=== PATIENT | female | born 1990 | race American Indian/Alaskan Native ===

== ENCOUNTER 2018-06-10 11:19 | Emergency (ER) | payer SELFPAY ==
[2018-06-10 13:07] LABS: HCG Qualitative,Urine Negative (Negative)
--- NOTE | 2018-06-10 17:32 | Emergency Department Report ---
ED ENT HPI - General Chief complaint: Dental/Oral Stated complaint: SWOLLEN FACE Time Seen by Provider: 06/10/18 16:47 Source: patient Mode of arrival: Ambulatory Limitations: No Limitations - History of Present Illness Initial comments: This is a 28-year-old -[place] female who presents with cavity to left upper and facial swelling on left side. Patient states she woke up this morning and the left side of face swollen. Patient states she is unsure of when she broke tooth on left upper side. Patient states initially there were some mild swelling today is unbearable. He denies sore throat, difficulty swallowing, fever, chest pain. MD complaint: tooth pain -: unknown Location: tooth # (#14) 1 - Partial tooth #14 and dental caries Severity: moderate Severity scale (0 -10): 10 Quality: aching Consistency: constant Improves with: none Worsens with: eating Context- Dental: history of dental caries, trauma, poor dental care Associated Symptoms: gum swelling, toothache - Related Data Previous Rx's Medication Instructions Recorded Last Taken Type Clindamycin [Clindamycin CAP] 300 mg PO Q8H #21 cap 06/10/18 Unknown Rx Naproxen 500 mg PO BID #14 tablet 06/10/18 Unknown Rx traMADol [Ultram 50 MG tab] 50 mg PO Q6HR PRN #12 tablet 06/10/18 Unknown Rx Allergies Allergy/AdvReac Type Severity Reaction Status Date / Time No Known Allergies Allergy Unverified 06/10/18 11:31 ED Dental HPI - General Chief complaint: Dental/Oral Stated complaint: SWOLLEN FACE Time Seen by Provider: 06/10/18 16:47 Source: patient Mode of arrival: Ambulatory Limitations: No Limitations - Related Data Previous Rx's Medication Instructions Recorded Last Taken Type Clindamycin [Clindamycin CAP] 300 mg PO Q8H #21 cap 06/10/18 Unknown Rx Naproxen 500 mg PO BID #14 tablet 06/10/18 Unknown Rx traMADol [Ultram 50 MG tab] 50 mg PO Q6HR PRN #12 tablet 06/10/18 Unknown Rx Allergies Allergy/AdvReac Type Severity Reaction Status Date / Time No Known Allergies Allergy Unverified 06/10/18 11:31 ED Review of Systems ROS: Stated complaint: SWOLLEN FACE Other details as noted in HPI Constitutional: denies: chills, fever ENT: dental pain. denies: ear pain, throat pain Respiratory: denies: cough, shortness of breath, wheezing Cardiovascular: denies: chest pain, palpitations Gastrointestinal: denies: abdominal pain, nausea, diarrhea Skin: denies: rash, lesions Neurological: denies: headache, weakness, paresthesias Psychiatric: denies: anxiety, depression ED Past Medical Hx - Past Medical History Hx Asthma: Yes - Surgical History Past Surgical History?: No - Social History Smoking Status: Current Every Day Smoker Substance Use Type: Alcohol - Medications Home Medications: Home Medications Medication Instructions Recorded Confirmed Last Taken Type Clindamycin [Clindamycin CAP] 300 mg PO Q8H #21 cap 06/10/18 Unknown Rx Naproxen 500 mg PO BID #14 tablet 06/10/18 Unknown Rx traMADol [Ultram 50 MG tab] 50 mg PO Q6HR PRN #12 tablet 06/10/18 Unknown Rx ED Physical Exam - General Limitations: No Limitations General appearance: alert, in no apparent distress, obese - ENT ENT exam: Present: mucous membranes moist, other (#14, to caries. Partial tooth , tenderness, mucosal swelling) - Respiratory Respiratory exam: Present: normal lung sounds bilaterally. Absent: respiratory distress - Cardiovascular Cardiovascular Exam: Present: regular rate, normal rhythm. Absent: systolic murmur, diastolic murmur, rubs, gallop - GI/Abdominal GI/Abdominal exam: Present: soft, normal bowel sounds. Absent: organomegaly, mass - Neurological Exam Neurological exam: Present: alert, oriented X3 - Psychiatric Psychiatric exam: Present: normal affect, normal mood - Skin Skin exam: Present: warm, dry, intact, normal color. Absent: rash ED Course Vital Signs 06/10/18 11:26 Temperature 98.9 F Pulse Rate 96 H Respiratory 18 Rate Blood Pressure 148/94 O2 Sat by Pulse 100 Oximetry ED Medical Decision Making - Medical Decision Making This is a 28-year-old female that presents with a toothache and left side facial swelling for 1 day. Patient is stable and was examined by me. Susceptible of fracture with dental caries. Discussed plan with patient. She agreed with ER plan. Discharged home with clindamycin, naproxen, and tramadol. Follow up with dentist. Critical care attestation.: If time is entered above; I have spent that time in minutes in the direct care of this critically ill patient, excluding procedure time. ED Disposition Clinical Impression: Dental caries Fractured tooth Qualifiers: Encounter type: initial encounter Fracture type: open Qualified Code(s): S02.5XXB - Fracture of tooth (traumatic), initial encounter for open fracture Disposition: TO HOME OR SELFCARE Is pt being admited?: No Does the pt Need Aspirin: No Condition: Stable Instructions: Dental Caries (ED), Toothache (ED) Additional Instructions: Complete all days of clindamycin as prescribed for 14 days. Follow up with Dentist in 24-72 hours. Prescriptions: Clindamycin [Clindamycin CAP] 300 mg PO Q8H #21 cap Naproxen 500 mg PO BID #14 tablet traMADol [Ultram 50 MG tab] 50 mg PO Q6HR PRN #12 tablet PRN Reason: Pain Referrals: [facility] [Outside] - 3-5 Days [facility] [Outside] - 3-5 Days [facility] [Outside] - 3-5 Days Time of Disposition: 17:49 Print Language: GREEK
[2018-06-10] MEDS ORDERED: ULTRAM PO ONE (18:05)
[2018-06-10 18:20] VITALS: BP 135/93
== END 2018-06-10 18:21 | disposition home or self-care (01) ==
LOC: ED 11:19
DX: S02.5XXB Fracture of tooth (traumatic), initial encounter for open fracture (principal); K02.9 Dental caries, unspecified; J45.909 Unspecified asthma, uncomplicated; F17.200 Nicotine dependence, unspecified, uncomplicated; Z79.899 Other long term (current) drug therapy; X58.XXXA Exposure to other specified factors, initial encounter; Y93.89 Activity, other specified; Y99.8 Other external cause status; Y92.89 Other specified places as the place of occurrence of the external cause
CPT/HCPCS: 81025; 99282